=== PATIENT | female | born 1955 | race Two or more races ===

== ENCOUNTER → 2018-02-05 | Outpatient (CLI) | payer MEDICARE, OTHER | END | disposition home or self-care (01) | LOC: MSC 13:00 | PROVIDERS: ATTEND Anesthesiology | DX: M50.10 Cervical disc disorder with radiculopathy, unspecified cervical region (principal); M46.96 Unspecified inflammatory spondylopathy, lumbar region; M54.5 Low back pain; M43.02 Spondylolysis, cervical region; M51.36 Other intervertebral disc degeneration, lumbar region; M96.1 Postlaminectomy syndrome, not elsewhere classified; M47.27 Other spondylosis with radiculopathy, lumbosacral region; M62.830 Muscle spasm of back; M17.0 Bilateral primary osteoarthritis of knee; M25.9 Joint disorder, unspecified; I10 Essential (primary) hypertension; E66.01 Morbid (severe) obesity due to excess calories; Z98.1 Arthrodesis status; Z79.891 Long term (current) use of opiate analgesic ==

== ENCOUNTER → 2018-03-12 | Outpatient (CLI) | payer MEDICARE, OTHER | END | disposition home or self-care (01) | LOC: MSC 02:15 | PROVIDERS: ATTEND Anesthesiology | DX: Z48.89 Encounter for other specified surgical aftercare (principal); M17.0 Bilateral primary osteoarthritis of knee; M50.10 Cervical disc disorder with radiculopathy, unspecified cervical region; M46.96 Unspecified inflammatory spondylopathy, lumbar region; M51.17 Intervertebral disc disorders with radiculopathy, lumbosacral region; I10 Essential (primary) hypertension; E66.01 Morbid (severe) obesity due to excess calories ==

== ENCOUNTER 2018-07-16 11:30 | Outpatient (CLI) | payer MEDICARE, OTHER | END 2018-07-16 23:59 | disposition home or self-care (01) | LOC: MSC 11:30 | PROVIDERS: ATTEND Anesthesiology | DX: M46.96 Unspecified inflammatory spondylopathy, lumbar region (principal); M51.36 Other intervertebral disc degeneration, lumbar region; M47.27 Other spondylosis with radiculopathy, lumbosacral region; M96.1 Postlaminectomy syndrome, not elsewhere classified; M62.830 Muscle spasm of back; R51 Headache; M50.10 Cervical disc disorder with radiculopathy, unspecified cervical region; M43.02 Spondylolysis, cervical region; M17.0 Bilateral primary osteoarthritis of knee; M25.9 Joint disorder, unspecified; Z79.891 Long term (current) use of opiate analgesic; Z79.899 Other long term (current) drug therapy ==

== ENCOUNTER → 2018-08-13 | Outpatient (CLI) | payer MEDICARE, OTHER | END | disposition home or self-care (01) | LOC: MSC 12:30 | PROVIDERS: ATTEND Anesthesiology | DX: M51.36 Other intervertebral disc degeneration, lumbar region (principal); M96.1 Postlaminectomy syndrome, not elsewhere classified; M47.27 Other spondylosis with radiculopathy, lumbosacral region; M50.10 Cervical disc disorder with radiculopathy, unspecified cervical region; M43.02 Spondylolysis, cervical region; M17.0 Bilateral primary osteoarthritis of knee; M25.9 Joint disorder, unspecified; R51 Headache; M62.830 Muscle spasm of back; Z79.891 Long term (current) use of opiate analgesic ==

== ENCOUNTER → 2021-05-03 | Outpatient (CLI) | payer MEDICARE, OTHER | END | disposition home or self-care (01) | LOC: MSC 11:25 | PROVIDERS: ATTEND Anesthesiology | DX: M46.96 Unspecified inflammatory spondylopathy, lumbar region (principal); M51.36 Other intervertebral disc degeneration, lumbar region; M47.27 Other spondylosis with radiculopathy, lumbosacral region; M43.26 Fusion of spine, lumbar region; M50.10 Cervical disc disorder with radiculopathy, unspecified cervical region; M43.02 Spondylolysis, cervical region; M96.1 Postlaminectomy syndrome, not elsewhere classified; M62.830 Muscle spasm of back; M17.0 Bilateral primary osteoarthritis of knee; M25.9 Joint disorder, unspecified; Z79.891 Long term (current) use of opiate analgesic ==